=== PATIENT | female | born 1945 | race Caucasian/White ===

== ENCOUNTER 2020-09-24 22:51 | Inpatient (IN) | payer OTHER ==
[~2020-09-24] VITALS: Ht 170.2 cm; Wt 67.1 kg
--- NOTE | 2020-09-24 23:13 | NUR ---
75 Y/O FEMALE BIB AMBULANCE A TRANSFER FROM [facility]. THE PT REPORTS SHE HAS BEEN EXPERIENCING INTERMITTENT LOSS OF MEMORY SINCE LAST THURSDAY. SHE HAS ALSO NOTICED THAT HER GAIT WAS A LITTLE UNSTEADY. PT DENIES ANY OTHER SYMPTOMS. SHE WAS EVALUATED AT [facility] THIS EVENING AND A MRI SCAN REVEALED A 3MM ACUTE INFARCT WITHIN THE LEFT HIPPOCAMPUS. PT DENIES ANY PMHX OTHER THAN HYPERLIPIDEMIA. UPON ARRIVAL TO THE ER, THE PT IS ALERT AND ORIENTED X4, GCS OF 15. SHE WAS ABLE TO STAND FROM [facility] AND WALK TO [facility] WITHOUT ASSISTANCE. FACE SYMMETRICAL, NEURO INTACT. PERRL. PT DENIES ANY COMPLAINTS AT THIS TIME OTHER THAN BEING "COLD". SHE WAS PROVIDED WITH WARM BLANKETS AND WARMER. ALL MONITORING EQUIPMENT APPLIED. NSR ON THE MONITOR AT A RATE OF 82, NO ECTOPY NOTED. NO ST CHANGES PRESENT. IV IN LEFT AC, PATENT, FLUSHES WITHOUT DIFFICULTY. ACCORDING TO REPORT AND PAPERWORK PROVIDED WITH PT, SHE RECEIVED 162MG OF ASA ORALLY AT SENDING FACILITY. DR. BROWNLEE AT BEDSIDE EVALUATING PT. AWAITING ORDERS, WILL CONTINUE TO MONITOR.
[2020-09-24 23:21] LABS: MEAN CORPUSCULAR HEMOGLOBIN 33.7 pg (27.0-34.8); MEAN CORPUSCULAR HGB CONC 33.4 g/dL (32.4-35.8); MEAN PLATELET VOLUME 9.4 fL (7.4-10.4); PLATELET COUNT 208 x10^3/uL (130-400); RED BLOOD COUNT 4.04 x10^6/uL (3.82-5.3); RED CELL DISTRIBUTION WIDTH 13.7 % (9.6-15.2)
[2020-09-24 23:31] LABS: ALBUMIN 3.7 g/dL (3.4-5.0); ANION GAP 4 mmol/L (5-15); CALCIUM 8.7 mg/dL (8.5-10.1); CHLORIDE 113 mmol/L (98-107); CREATININE 0.91 mg/dL (0.55-1.02)
[2020-09-24 23:34] LABS: INTERNATIONAL NORMALIZED RATIO 1.05 (0.93-1.1); PROTHROMBIN TIME 11.1 Seconds (9.6-11.5)
[2020-09-24] MEDS: PLEASE ENTER ALLERGIES MC SCH (23:45)
[2020-09-24 23:52] LABS: MD YES
--- NOTE | 2020-09-24 23:55 | NUR ---
DYSPHAGIA SCREEN COMPLETED. NO DIFFICULTIES SWALLOWING NOTED. ALSO ATTEMPTED TO GET UA FROM PT. PT STATES SHE CANNOT URINATE AT THIS TIME. SHE REQUESTED WATER. PT WAS PROVIDED WITH WATER, WILL ATTEMPT UA AGAIN SOON.
[2020-09-24 23:58] LABS: BASOS#(MANUAL) 0.06 x10^3/uL (0-0.1); BASOS% (MANUAL) 1 % (0-1); EOS% (MANUAL) 5 % (1-7); LYMPHS% (MANUAL) 44 % (22-44); MONOS#(MANUAL) 0.53 x10^3/uL (0.3-2.7); MONOS% (MANUAL) 9 % (2-9); SEG#(MANUAL) 2.42 x10^3/uL (1.8-6.8); SEGS% (MANUAL) 41 % (42-75)
[2020-09-24 23:59] LABS: <PLATELET ESTIMATE> ADEQUATE; <PLT MORPHOLOGY> NORMAL PLT MORPH
[2020-09-25] MEDS ORDERED: LABETALOL 5MG/ML, 20ML IVPush PRN
[2020-09-25] MEDS ORDERED: ONDANSETRON 2MG/ML, 2ML IVPush PRN
[2020-09-25] MEDS ORDERED: LABETALOL 5MG/ML, 20ML IV PRN
[2020-09-25] MEDS ORDERED: SODIUM CHLORIDE 0.9% 1,000 ML IV SCH
[2020-09-25] MEDS ORDERED: DOCUSATE 100 MG CAPSULE PO PRN
--- NOTE | 2020-09-25 01:23 | NUR ---
PT AMBULATORY TO RESTROOM WITH STEADY GAIT. NO ASSISTANCE NEEDED. BACK TO ROOM WITHOUT DIFFICULTY. PT OBTAINED A UA. LABLED, COLLECTED AND SENT TO LAB. PT ALSO MOVED ONTO A HOSPITAL BED, PROVIDED WITH PILLOWS AND BEAR HUGGER. PT DENIES ANY OTHER NEEDS AT THIS TIME. CALL LIGHT WITHIN REACH. REPORT GIVEN TO SG GARRIDO
--- NOTE | 2020-09-25 01:26 | NUR ---
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 APPLE WATCH ON WRIST AND SEVERAL RINGS ON FINGERS. ONE BAG OF BELONGINGS FROM SENDING FACILITY
--- NOTE | 2020-09-25 01:36 | NUR ---
Report received from SG Alonzo. This RN to assume care.
[2020-09-25 01:46] LABS: MICROSCOPIC AUTO
[2020-09-25] MEDS ORDERED: CEFTRIAXONE PMX 1GM/50ML 50 ML IV ONE (02:30)
[2020-09-25] MEDS ORDERED: CEFTRIAXONE PMX 1GM/50ML 50 ML ONE (02:35)
--- NOTE | 2020-09-25 02:41 | NUR ---
Meds admin per jan. Patient sleeping in hospital bed. No needs at this time.
--- NOTE | 2020-09-25 03:49 | NUR ---
Patient sleeping in hospital bed. Respirations even and unlabored. No needs at this time.
[2020-09-25 04:39] LABS: BASOPHILS % (AUTO) 0 % (0-1); EOSINOPHILS % (AUTO) 4 % (1-7); LYMPHOCYTES % (AUTO) 46 % (22-44); MEAN CORPUSCULAR HEMOGLOBIN 33.9 pg (27.0-34.8); MEAN CORPUSCULAR HGB CONC 33.2 g/dL (32.4-35.8); MEAN PLATELET VOLUME 9.4 fL (7.4-10.4); MONOCYTES % (AUTO) 11 % (2-9); NEUTROPHILS % (AUTO) 39 % (42-75); PLATELET COUNT 200 x10^3/uL (130-400); RED BLOOD COUNT 3.98 x10^6/uL (3.82-5.3); RED CELL DISTRIBUTION WIDTH 13.6 % (9.6-15.2)
[2020-09-25 04:51] LABS: ANION GAP 3 mmol/L (5-15); CALCIUM 8.5 mg/dL (8.5-10.1); CHLORIDE 114 mmol/L (98-107); CHOLESTEROL, TOTAL 147 mg/dL (140-239); CREATININE 0.87 mg/dL (0.55-1.02); TRIGLYCERIDES 68 mg/dL (50-200); VLDL CHOLESTEROL 14 mg/dL (0-25)
[2020-09-25 04:52] LABS: CHOL/HDL RATIO 2.2; HDL CHOL % 45 % (28-40); HDL CHOLESTEROL (DIRECT) 66 mg/dL (40-60); LDL CHOLESTEROL,CALCULATED 67 mg/dL (54-169)
[2020-09-25 05:45] LABS: MD SCAN
--- NOTE | 2020-09-25 05:50 | NUR ---
REPORT FROM SG ROMERO. PT SLEEPING, NADN. RESPIRATIONS EVEN AND UNLABORED.
--- NOTE | 2020-09-25 07:00 | NUR ---
BEDSIDE, SBAR RPT REC'D AND PT CARE ASSUMED. PT OOB AND AMBULATED TO BATHROOM, UPRIGHT STEADY GAIT. PERSONAL HYGEINE, TOOTH BRUSH/PASTE PROVIDED. PT COMPLETED TASKS INDEPENDENTLY AND RTD TO ROOM W/O INCIDENT/
--- NOTE | 2020-09-25 07:06 | NUR ---
BEDSIDE REPOR TO SG CRAMER. PT UP TO BATHROOM WITH STEADY GAIT.
[2020-09-25] MEDS: PLEASE ENTER ALLERGIES MC SCH ×2 (08:18→17:47)
--- NOTE | 2020-09-25 08:38 | NUR ---
PT MOVED FROM ROOM 37 THIS ROOM IS A HEPPA FILTER ROOM AND IS VERY NOISY. PT TO ROOM 31, ALL BELONGINGS TRANSFERED. CALL LIGHT W/I REACH, VSS. POC DISCUSSED AND QUESTIONS ANSWERED.
[2020-09-25] MEDS ORDERED: ASPIRIN 81 MG TABLET CHEW ONE (08:45)
[2020-09-25] MEDS: ASPIRIN 81 MG TABLET CHEW PO/NG SCH (08:55)
--- NOTE | 2020-09-25 08:56 | NUR ---
DR WEMES AT BEDSIDE. MEAL TRAY PROVIDED AND SET UP.
--- NOTE | 2020-09-25 11:00 | NUR ---
SPOKE WITH PTS DAUGHTERJOO VIA PHONE. POC DISCUSSED AND QUESTIONS ANSWERED. ALSO REVIEWED VISITNG POLICY AND QUESTIONS ANSWERED.
--- NOTE | 2020-09-25 11:12 | NUR ---
SPEECH THERAPIST AT BEDSIDE.
--- NOTE | 2020-09-25 12:30 | NUR ---
MEAL TRAY PROVIDED
--- NOTE | 2020-09-25 13:16 | NUR ---
PT OOB AND AMBULATED IN HALLWAY WITH RN ESCORT. PT TO BATHROOM THEN RTD TO ROOM W/O INCIDENT. MONITORS IN PLACED AND CALL LIGHT W/I REACH
--- NOTE | 2020-09-25 16:49 | NUR ---
SPOKE WITH CARDIAC US. PT SUTDIES WILL BE COMPLETED IN THE AM. PT INFORMED
[2020-09-25 17:49] VITALS: BP 134/73
[2020-09-25 19:40] VITALS: BP 150/84
[2020-09-25] MEDS ORDERED: ATORVASTATIN 40 MG TABLET PO SCH (21:00)
[2020-09-25] MEDS ORDERED: ACETAMINOPHEN 325 MG TABLET PO PRN (23:30)
[2020-09-25 23:35] VITALS: BP 132/81
[2020-09-26 01:29] VITALS: BP 116/64
[2020-09-26 07:11] VITALS: BP 123/75
[2020-09-26] MEDS: ASPIRIN 81 MG TABLET CHEW PO/NG SCH (07:54)
[2020-09-26 13:24] VITALS: BP 125/73
[2020-09-26] MEDS ORDERED: ASPI-515 PO/NG (14:08)
[2020-09-26] MEDS ORDERED: ATOR40TA78 PO (14:08)
== END 2020-09-26 17:02 | disposition home or self-care (01) | DRG 65 ==
LOC: ED 23:26 → EDIP 09-25 00:04 → 4WST 09-25 17:44 → DCLOUNGE 09-26 16:48
PROVIDERS: ADMIT Family Medicine; ATTEND Internal Medicine
DX: I63.9 Cerebral infarction, unspecified (principal); N39.0 Urinary tract infection, site not specified; E78.5 Hyperlipidemia, unspecified; I48.91 Unspecified atrial fibrillation; I65.23 Occlusion and stenosis of bilateral carotid arteries; Z79.82 Long term (current) use of aspirin; Z86.73 Personal history of transient ischemic attack (TIA), and cerebral infarction without residual deficits
CPT/HCPCS: 36415; 80048; 80061; 81001; 82040; 85025; 85610; 85730; 87077; 87086; 87186; 93005; 93306; 93356; 93880; G0378; J0696; 92523-GN; J7030